=== PATIENT | male | born 1965 | race Caucasian/White ===

== ENCOUNTER → 2016-06-08 | Outpatient (CLI) | payer MEDICARE, OTHER | LOC: M RAD 09:56 | PROVIDERS: ATTEND Physician Assistant | DX: M75.41 Impingement syndrome of right shoulder (principal) ==

== ENCOUNTER → 2016-09-07 | Outpatient (REF) | payer MEDICARE, OTHER ==
[2016-09-07 16:21] LABS: BASO % 0.7 % (0.0-1.0); EOS # 0.1 K/mm3 (0.0-0.50); EOS % 1.4 % (0.0-3.0); LARGE UNSTAINED CELL # 0.1 K/mm3 (0.0-0.4); LARGE UNSTAINED CELL % 1.5 % (0.0-4.0); LYMPH # 1.6 K/mm3 (1.5-4.5); LYMPH % 33.1 % (24.0-44.0); MEAN CORPUSCULAR HGB CONC 34.5 g/dl (32.0-36.5); MEAN CORPUSCULAR VOLUME 86.8 fl (80.0-96.0); MONO # 0.3 K/mm3 (0.0-0.8); MONO % 6.1 % (0.0-5.0); NEUTROPHILS # 2.6 K/mm3 (1.8-7.7); NEUTROPHILS % 57.1 % (36.0-66.0); PLATELET COUNT, AUTOMATED 174 k/mm3 (150-450); RED CELL DISTRIBUTION WIDTH 12.7 % (11.5-14.5); WHITE BLOOD COUNT 4.6 K/mm3 (4.0-10.0)
[2016-09-07 16:28] LABS: ALBUMIN 4.3 GM/DL (3.2-5.2); ALBUMIN/GLOBULIN RATIO 1.13 (1.00-1.93); ALKALINE PHOSPHATASE 108 U/L (45-117); ALT/SGPT 51 U/L (12-78); ANION GAP 9 MEQ/L (8-16); AST/SGOT 31 U/L (15-37); BILIRUBIN,TOTAL 0.9 MG/DL (0.2-1.0); BLOOD UREA NITROGEN 14 MG/DL (7-18); CALCIUM LEVEL 8.7 MG/DL (8.5-10.1); CARBON DIOXIDE LEVEL 27 MEQ/L (21-32); CHLORIDE LEVEL 104 MEQ/L (98-107); CHOLESTEROL LEVEL 125 MG/DL (<200); CREATININE FOR GFR 1.07 MG/DL (0.70-1.30); GLOMERULAR FILTRATION RATE > 60.0 (>56); GLUCOSE, FASTING 89 MG/DL (70-105); POTASSIUM SERUM 4.1 MEQ/L (3.5-5.1); SODIUM LEVEL 140 MEQ/L (136-145); TOTAL PROTEIN 8.1 GM/DL (6.4-8.2); TRIGLYCERIDES LEVEL 91 MG/DL (<150)
== END ==
LOC: M LABDRAW1 13:31
PROVIDERS: ATTEND Emergency Medicine
DX: E29.1 Testicular hypofunction (principal)
CPT/HCPCS: 36415; 80053; 80061; 84402; 84403; 85025; G0103

== ENCOUNTER 2017-04-16 07:52 | Day surgery (SDC) | payer MEDICARE, OTHER ==
[~2017-04-16] VITALS: Ht 188 cm; Wt 101.6 kg
[~2017-04-16 07:52] MED LIST: ASPI81TA85 PO; PROBCAP4 PO; [UNRECOGNIZED DRUG - OTHER] PO
[2017-04-16] MEDS ORDERED: NS 1,000 ML IV ONE (08:00)
[2017-04-16] MEDS ORDERED: PROPOFOL 200 MG/20 ML VIAL As Ordered ONE ×3 (09:14→09:41)
[2017-04-16] MEDS ORDERED: LIDOCAINE 2% INJ 100 MG/5 ML SDV (FOR ANES.) As Ordered ONE (09:14)
--- NOTE | 2017-04-16 09:54 | ROOR ---
Patient Name: Jerrod Mai Procedure Date: 04/16/2017 9:16 AM Date of : 1965 Age: 51 Room: [facility] Gender: Male Note Status: Finalized Procedure: Colonoscopy Indications: Screening for colorectal malignant neoplasm, This is the patient's first colonoscopy Providers: Christopher Jenkins MD Referring MD: ANA STAPLETON MD Requesting Provider: Medicines: Monitored Anesthesia Care Complications: No immediate complications. Procedure: Pre-Anesthesia Assessment: - Prior to the procedure, a History and Physical was performed, and patient medications and allergies were reviewed. The patient is competent. The risks and benefits of the procedure and the sedation options and risks were discussed with the patient. All questions were answered and informed consent was obtained. Patient identification and proposed procedure were verified by the physician, the nurse and the anesthesiologist in the procedure room. Mental Status Examination: alert and oriented. Airway Examination: normal oropharyngeal airway and neck mobility. CV Examination: regular rate and rhythm. Prophylactic Antibiotics: The patient does not require prophylactic antibiotics. Prior Anticoagulants: The patient has taken no previous anticoagulant or antiplatelet agents. ASA Grade Assessment: I - A normal, healthy patient. After reviewing the risks and benefits, the patient was deemed in satisfactory condition to undergo the procedure. The anesthesia plan was to use monitored anesthesia care (MAC). Immediately prior to administration of medications, the patient was re-assessed for adequacy to receive sedatives. The heart rate, respiratory rate, oxygen saturations, blood pressure, adequacy of pulmonary ventilation, and response to care were monitored throughout the procedure. The physical status of the patient was re-assessed after the procedure. The was introduced through the anus and advanced to the cecum, identified by appendiceal orifice and ileocecal valve. The colonoscopy was performed without difficulty. The patient tolerated the procedure well. The quality of the bowel preparation was good. Findings: The perianal and digital rectal examinations were normal. The colon (entire examined portion) appeared normal. Impression: - The entire examined colon is normal. - No specimens collected. Recommendation: - Discharge patient to home. - Resume previous diet. - Continue present medications. - Repeat colonoscopy in 10 years for screening purposes. Christopher Jenkins MD 04/16/2017 9:54:18 AM Number of Addenda: 0 Note Initiated On: 04/16/2017 9:16 AM Estimated Blood Loss: Estimated blood loss: none.
[2017-04-16 10:20] VITALS: BP 142/89
== END 2017-04-16 10:18 | disposition home or self-care (01) ==
LOC: M OPP 07:52
PROVIDERS: ATTEND Surgery
DX: Z12.11 Encounter for screening for malignant neoplasm of colon (principal); M54.9 Dorsalgia, unspecified; Z79.82 Long term (current) use of aspirin; M96.1 Postlaminectomy syndrome, not elsewhere classified

== ENCOUNTER → 2018-01-30 | Outpatient (REF) | payer MEDICARE, OTHER ==
[2018-01-30 12:42] LABS: BASO % 0.5 % (0.0-1.0); EOS % 0.7 % (0.0-3.0); HEMATOCRIT 42.2 % (42.0-52.0); IMMATURE GRANULOCYTE % 0.9 % (0-3.0); LYMPH # 1.3 10^3/uL (1.5-4.5); LYMPH % 23.3 % (24.0-44.0); MEAN CORPUSCULAR HEMOGLOBIN 29.5 pg (27.0-33.0); MEAN CORPUSCULAR HGB CONC 33.2 g/dl (32.0-36.5); MEAN CORPUSCULAR VOLUME 88.8 fl (80.0-96.0); MONO # 0.4 10^3/uL (0.0-0.8); MONO % 6.7 % (0.0-5.0); NEUTROPHILS # 3.9 10^3/uL (1.8-7.7); NEUTROPHILS % 67.9 % (36.0-66.0); PLATELET COUNT, AUTOMATED 238 10^3/uL (150-450); RED BLOOD COUNT 4.75 10^6/uL (4.30-6.10); RED CELL DISTRIBUTION WIDTH 12.6 % (11.5-14.5); WHITE BLOOD COUNT 5.7 10^3/uL (4.0-10.0)
[2018-01-30 14:16] LABS: ALBUMIN 4.3 GM/DL (3.2-5.2); ALBUMIN/GLOBULIN RATIO 1.19 (1.00-1.93); ALKALINE PHOSPHATASE 124 U/L (45-117); ALT/SGPT 35 U/L (12-78); ANION GAP 9 MEQ/L (8-16); AST/SGOT 25 U/L (7-37); BILIRUBIN,TOTAL 0.8 MG/DL (0.2-1.0); BLOOD UREA NITROGEN 16 MG/DL (7-18); CALCIUM LEVEL 9.2 MG/DL (8.5-10.1); CARBON DIOXIDE LEVEL 28 MEQ/L (21-32); CHLORIDE LEVEL 103 MEQ/L (98-107); CHOLESTEROL LEVEL 165 MG/DL (<200); CHOLESTEROL RISK RATIO 2.704 (<5); GLOMERULAR FILTRATION RATE > 60.0 (>56); GLUCOSE, FASTING 83 MG/DL (70-100); HDL CHOLESTEROL 61 MG/DL (>40); LDL CHOLESTEROL 86 MG/DL (<100); NON-HDL-C 104 MG/DL; POTASSIUM SERUM 4.3 MEQ/L (3.5-5.1); PSA SCREENING 0.45 NG/ML (< 4.0); SODIUM LEVEL 140 MEQ/L (136-145); TOTAL PROTEIN 7.9 GM/DL (6.4-8.2); TRIGLYCERIDES LEVEL 91 MG/DL (<150)
[2018-01-31 14:15] LABS: TESTOSTERONE FREE (DIRECT) 4.2 pg/mL (7.2-24.0)
== END ==
LOC: M LABDRAW1 11:46
DX: E29.1 Testicular hypofunction (principal); Z12.5 Encounter for screening for malignant neoplasm of prostate
CPT/HCPCS: 84403

== ENCOUNTER → 2019-02-24 | Outpatient (REF) | payer MEDICARE, OTHER ==
[2019-02-24 13:28] LABS: ALBUMIN 4.1 GM/DL (3.2-5.2); ALT/SGPT 24 U/L (12-78); BILIRUBIN,TOTAL 0.5 MG/DL (0.2-1.0); BLOOD UREA NITROGEN 9 MG/DL (7-18); CALCIUM LEVEL 8.8 MG/DL (8.5-10.1); CARBON DIOXIDE LEVEL 27 MEQ/L (21-32); CHLORIDE LEVEL 104 MEQ/L (98-107); CHOLESTEROL LEVEL 151 MG/DL (<200); CHOLESTEROL RISK RATIO 3.145 (<5); CREATININE FOR GFR 1.04 MG/DL (0.70-1.30); FREE T4 0.93 NG/DL (0.76-1.46); GLOMERULAR FILTRATION RATE > 60.0 (>56); GLUCOSE, FASTING 86 MG/DL (70-100); HDL CHOLESTEROL 48 MG/DL (>40); LDL CHOLESTEROL 58 MG/DL (<100); NON-HDL-C 103 MG/DL; POTASSIUM SERUM 4.2 MEQ/L (3.5-5.1); SODIUM LEVEL 138 MEQ/L (136-145); TRIGLYCERIDES LEVEL 224 MG/DL (<150)
[2019-02-26 00:08] LABS: TESTOSTERONE FREE (DIRECT) 6.5 pg/mL (7.2-24.0)
== END ==
LOC: M LABDRAW1 10:47
PROVIDERS: ATTEND Physician Assistant
DX: E29.1 Testicular hypofunction (principal); R03.0 Elevated blood-pressure reading, without diagnosis of hypertension; Z80.42 Family history of malignant neoplasm of prostate; R53.83 Other fatigue; Z79.82 Long term (current) use of aspirin; Z79.899 Other long term (current) drug therapy
CPT/HCPCS: 36415; 80053; 80061; 84402; 84403; 84439; 84443; G0103

== ENCOUNTER → 2019-09-15 | Outpatient (REF) | payer MEDICARE, BC, OTHER ==
[~2019-09-15] MED LIST changes: -ASPI81TA85 PO; +ASPI81TA86 PO
== END ==
LOC: M LAB REF 10:17
PROVIDERS: ATTEND Dermatology
DX: D23.39 Other benign neoplasm of skin of other parts of face (principal)

== ENCOUNTER → 2019-09-22 | Outpatient (CLI) | payer MEDICARE, OTHER ==
--- NOTE | 2019-09-22 15:57 | REP ---
CHEST, TWO VIEWS: COMPARISON: 01/24/2011 Two views of the chest are performed. There is no acute infiltrate or pulmonary edema. The heart is normal in size and the mediastinal silhouette is unchanged. There are degenerative changes of the spine. IMPRESSION: No evidence of acute pulmonary disease. Electronically Signed by Willy Mai MD 09/22/2019 04:05 P
== END ==
LOC: M WUC 15:27
PROVIDERS: ATTEND Physician Assistant
DX: R07.81 Pleurodynia (principal)

== ENCOUNTER 2019-09-28 09:09 | Emergency (ER) | payer MEDICARE, OTHER ==
[~2019-09-28] VITALS: Ht 190.5 cm; Wt 106.2 kg
[~2019-09-28 09:09] MED LIST changes: +ASPI81TA85 PO; -ASPI81TA86 PO
--- NOTE | 2019-09-28 10:01 | REP ---
Portable chest x-ray: Single view. History: Chest pain. Comparison study: September 22, 2019. Findings: Monitoring electrodes are seen. Lungs are well inflated and clear. The pleural angles are sharp. Heart size is normal. Pulmonary vasculature is not increased. There are degenerative changes in the thoracic spine. Impression: No active disease. Electronically Signed by aNbil Hurtado MD 09/28/2019 09:53 A
[2019-09-28 10:44] LABS: BASO # 0.1 10^3/uL (0.0-0.2); BASO % 1.2 % (0.0-1.0); EOS # 0.1 10^3/uL (0.0-0.5); HEMATOCRIT 41.7 % (42.0-52.0); HEMOGLOBIN 14.3 g/dl (13.5-17.5); LYMPH # 1.6 10^3/uL (1.5-5.0); LYMPH % 26.5 % (24.0-44.0); MEAN CORPUSCULAR HEMOGLOBIN 30.2 pg (27.0-33.0); MEAN CORPUSCULAR HGB CONC 34.3 g/dl (32.0-36.5); MONO # 0.5 10^3/uL (0.0-0.8); MONO % 8.1 % (0.0-5.0); NEUTROPHILS # 3.7 10^3/uL (1.5-8.5); NEUTROPHILS % 61.7 % (36.0-66.0); PLATELET COUNT, AUTOMATED 207 10^3/uL (150-450); RED BLOOD COUNT 4.74 10^6/uL (4.30-6.10)
[2019-09-28 11:07] LABS: ALBUMIN 3.8 GM/DL (3.2-5.2); ALT/SGPT 76 U/L (12-78); BILIRUBIN,DIRECT 0.2 MG/DL (0.0-0.2); BILIRUBIN,TOTAL 0.7 MG/DL (0.2-1.0); BLOOD UREA NITROGEN 14 MG/DL (7-18); CALCIUM LEVEL 8.8 MG/DL (8.5-10.1); CARBON DIOXIDE LEVEL 28 MEQ/L (21-32); CHLORIDE LEVEL 106 MEQ/L (98-107); CK-MB VALUE MASS 4.3 NG/ML (<3.6); CPK CREATINE PHOSPHOKINASE 703 U/L (39-308); CREATININE FOR GFR 1.06 MG/DL (0.70-1.30); FREE T4 1.15 NG/DL (0.76-1.46); GLOMERULAR FILTRATION RATE > 60.0 (>56); GLUCOSE, FASTING 148 MG/DL (70-100); LIPASE 229 U/L (73-393); MB/CK RELATIVE INDEX 0.61 (< OR =4); NT-PRO BNP 34 PG/ML (<125); POTASSIUM SERUM 3.9 MEQ/L (3.5-5.1); SODIUM LEVEL 141 MEQ/L (136-145); TOTAL PROTEIN 7.1 GM/DL (6.4-8.2); TROPONIN I < 0.02 NG/ML (< 0.10)
[2019-09-28 12:26] VITALS: BP 135/72
--- NOTE | 2019-09-29 07:10 | ECGEPIP ---
[facility] - ED Test Date: 2019-09-28 Pat Name: KELSEY ONEILL Department: Room: - Gender: Male Installation Service Representative: pavel : 1965 Requested By: Gregory Mercado Order Number: [id number] Reading MD: Veena Sargent Measurements Intervals [place] Rate: 69 P: 11 CO: 159 QRS: 3 QRSD: 97 T: 21 QT: 421 QTc: 451 Interpretive Statements SINUS RHYTHM MINIMAL VOLTAGE CRITERIA FOR LVH, CONSIDER NORMAL VARIANT No prior Electronically Signed on 09-29-2019 7:09:59 EDT by Veena Sargent
== END 2019-09-28 12:31 | disposition home or self-care (01) ==
LOC: M ED 09:09
DX: R07.89 Other chest pain (principal); R05 Cough; R06.02 Shortness of breath; Z79.82 Long term (current) use of aspirin; Z87.891 Personal history of nicotine dependence; Z77.098 Contact with and (suspected) exposure to other hazardous, chiefly nonmedicinal, chemicals

== ENCOUNTER → 2020-01-05 | Outpatient (REF) | payer MEDICARE, OTHER ==
[~2020-01-05] MED LIST changes: -ASPI81TA85 PO; +ASPI81TA86 PO
[2020-01-05 23:01] LABS: BLOOD UREA NITROGEN 11 MG/DL (7-18); CREATININE FOR GFR 0.86 MG/DL (0.70-1.30); GLOMERULAR FILTRATION RATE > 60.0 (>56)
== END ==
LOC: M LAB REF 13:15
PROVIDERS: ATTEND Internal Medicine Pulmonary Disease
DX: R06.00 Dyspnea, unspecified (principal)

== ENCOUNTER → 2020-01-14 | Outpatient (CLI) | payer MEDICARE, BC, OTHER ==
[~2020-01-14] MED LIST changes: +ISOVUE-370 76% 100ML VIAL As Ordered ONE
--- NOTE | 2020-02-10 12:49 | REP ---
CONTRAST ENHANCED CHEST CT CLINICAL: Dyspnea. TECHNIQUE: Axial contrast enhanced images from the thoracic inlet to the upper abdomen with multiplanar reformations using pulmonary embolus technique. 75 mL of Isovue-370 intravenous contrast material administered without complication. FINDINGS: Enhancement of the pulmonary vasculature is somewhat suboptimal due to timing. No obvious pulmonary embolus appreciated. The thoracic aorta is normal and without aneurysm or dissection. No cardiomegaly or pericardial effusion. Right apical mass is appreciated and requires further evaluation. Bilateral lung garcía are otherwise clear and without further consolidation, effusion, or pneumothorax. Tracheobronchial tree is patent. No adenopathy. Surrounding musculoskeletal structures are intact. IMPRESSION: No evidence for pulmonary embolus. Normal thoracic aorta. Right apical mass requires further evaluation. . MTDD
== END ==
LOC: M RAD 13:04
PROVIDERS: ATTEND Internal Medicine Pulmonary Disease
DX: R06.00 Dyspnea, unspecified (principal)
CPT/HCPCS: 71275; Q9967

== ENCOUNTER → 2020-01-15 | Outpatient (CLI) | payer MEDICARE, BC, OTHER ==
[~2020-01-15] MED LIST changes: -ISOVUE-370 76% 100ML VIAL As Ordered ONE
--- NOTE | 2020-02-10 12:50 | REP ---
LEFT LOWER EXTREMITY DOPPLER ULTRASOUND: CLINICAL: Edema, pain. TECHNIQUE: Real time, rodriguez scale and color evaluation using linear high frequency transducer. FINDINGS: Ultrasound examination of the left lower extremity deep venous structures from the common femoral vein to the popliteal vein demonstrates normal compressibility, flow and wave patterns in response to respiration and augmentation. There is no evidence for deep venous thrombosis. IMPRESSION: Negative examination. No DVT. MTDD
== END ==
LOC: M RAD 06:05
PROVIDERS: ATTEND Internal Medicine Pulmonary Disease
DX: R60.0 Localized edema (principal)

== ENCOUNTER → 2020-02-04 | Outpatient (CLI) | payer MEDICARE, OTHER ==
[~2020-02-04] MED LIST changes: +ISOVUE-370 76% 100ML VIAL As Ordered ONE
--- NOTE | 2020-02-10 07:10 | REP ---
CT SOFT TISSUE NECK WITH INTRAVENOUS (IV) CONTRAST HISTORY: Neoplasm of the mediastinum. COMPARISON: Chest CT study 01/14/2020 shows a mediastinal mass in the right side of the thoracic inlet at the level of the lung apex. CT CONTRAST DOSE: 75 mL of intravenous Isovue-[address] FINDINGS: Digital preliminary supervisor counseling and guidance radiographs are unremarkable. Visualized intracranial structures are intact. No intraorbital lesion is seen. The paranasal sinuses are clear except for some mild mucosal changes in the inferior aspect of each maxillary sinus. No bony destructive lesion is seen. Parotid and submandibular glands are normal and symmetric. Thyroid lobes are homogeneous in texture and normal in size and position. No vascular abnormality is seen. There is no evidence of suprahyoid or infrahyoid lymphadenopathy. The small mass at the thoracic inlet seen on the 01/14/2020 CT study of the chest is again noted. This is isodense to skeletal muscle. On axial images, its dimensions are 3.5 cm in medial to lateral x 2.5 cm anterior to posterior. Its craniocaudal extent is a little bit difficult to define, but appears to be 4.6 cm. It is bordered laterally by the anterior and middle scalene muscle, posterior and medially by the longus coli muscle on the right. Anteriorly the lesion is bordered by the right subclavian artery. The right vertebral artery courses along or possibly through the anterior margin of the lesion. There is a flat plane between the lesion and the mediastinal fat at the thoracic inlet. The lesion does not appear to be of pulmonary origin. The lung apices are clear. No rib erosion or remodeling is appreciated. No vertebral changes. No other mass lesion is seen. IMPRESSION: Small soft tissue mass the right side of the thoracic inlet 3.5 x 2.5 x 4.6 cm in diameter. Possibilities include neurogenic tumor, variant skeletal muscle related to anterior scalene or adjacent longus coli muscle, or other neoplasm. MRI scanning without and with intravenous (IV) contrast may provide additional characterization. There is no evidence of bony destructive or remodeling change. MTDD
== END ==
LOC: M RAD 09:03
PROVIDERS: ATTEND Thoracic Surgery (Cardiothoracic Vascular Surgery)
DX: D38.3 Neoplasm of uncertain behavior of mediastinum (principal)
CPT/HCPCS: 70491; Q9967

== ENCOUNTER → 2020-06-17 | Outpatient (CLI) | payer MEDICARE, OTHER ==
[~2020-06-17] MED LIST changes: -ISOVUE-370 76% 100ML VIAL As Ordered ONE
--- NOTE | 2020-06-17 11:59 | REP ---
INDICATION: MASS ON MRI, PAIN. Evaluate for tear or avascular necrosis or other etiology of pain. COMPARISON: Comparison soft tissue neck CT study 02/04/2020 showed a soft tissue mass at the thoracic inlet on the right side.. TECHNIQUE: Axial, oblique coronal, and oblique sagittal imaging planes are utilized for T1 and T2 weighted scans obtained with and without fat saturation in the usual fashion. Postcontrast imaging is included. The gadolinium enhancement dose is 20 mL of intravenous ProHance. FINDINGS: This shoulder protocol MRI study does not include the more medial aspect of the thoracic inlet where previous soft tissue neck CT study showed a mass. There is no evidence of avascular and a clip necrosis of the humeral head. There is however a intramedullary lesion in the proximal diaphysis of the right humerus characterized by heterogeneous low and high T2 signal and low T1 signal. It has a narrow zone of transition and no adjacent edema or periosteal reaction and a nonaggressive appearance. It is most consistent with enchondroma, less likely bone infarct. Cortical and medullary bone signal intensity are otherwise normal. There is some subcortical cyst formation in the superolateral humeral head which is a finding correlated with impingement. There is mild osteoarthritic hypertrophy of the acromioclavicular joint and some inferolateral spurring of the acromion process is seen. T2 weighted scans demonstrate a tiny sliver of subacromial subdeltoid bursal fluid. There is a small quantity of joint fluid in the biceps tendon. There is a 2 0.3 mm low signal loose sheath seen to best advantage body in the biceps tendon on T2 weighted scans. No other evidence of loose body is seen. There is advanced tendinitis tendinosis change in the distal supraspinatus tendon. No focal or full-thickness supraspinatus cuff tear is seen. The infraspinatus and subscapularis tendons appear intact. There is chondromalacia in the glenoid articular cartilage. No labral tear is seen. On postcontrast imaging, there is extensive T1 hyperintensity on precontrast study and there is no definite evidence of contrast enhancement within the lesion in the proximal humerus. No other significant contrast enhancement is appreciated. IMPRESSION: 1. There is a 5.6 cm long intramedullary lesion in the proximal humeral diaphysis most consistent with a benign enchondroma. 2. Advanced tendinitis tendinosis changes in the supraspinatus tendon without for focal or full-thickness cuff tear. 3. 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 4. Small osteocartilaginous loose body seen in the biceps tendon sheath. 5. Glenoid chondromalacia. <Electronically signed by Jonathan Hurtado > 06/17/20 [id number]
== END ==
LOC: M RAD 08:51
DX: M94.211 Chondromalacia, right shoulder (principal); M19.011 Primary osteoarthritis, right shoulder; M25.511 Pain in right shoulder

== ENCOUNTER 2020-08-06 12:08 | Observation (INO) | payer MEDICARE, OTHER ==
[~2020-08-06] VITALS: Ht 190.5 cm; Wt 99.5 kg
[2020-08-06] MEDS ORDERED: ASPI-1 PO (12:16)
[2020-08-06] MEDS ORDERED: MORPHINE 10 MG/ML 1ML VIAL (J2270) IM ONE (12:40)
[2020-08-06] MEDS ORDERED: ONDANSETRON 4MG/2ML VIAL IV ONE (12:40)
[2020-08-06] MEDS ORDERED: MORPHINE 4 MG/ML 1ML VIAL/SYRINGE (J2270) IV ONE (12:40)
[2020-08-06 12:58] LABS: BASO % 0.5 % (0.0-1.0); EOS # 0.1 10^3/uL (0.0-0.5); HEMATOCRIT 40.6 % (42.0-52.0); HEMOGLOBIN 14.2 g/dl (13.5-17.5); LYMPH # 1.3 10^3/uL (1.5-5.0); LYMPH % 22.5 % (24.0-44.0); MEAN CORPUSCULAR HEMOGLOBIN 30.6 pg (27.0-33.0); MEAN CORPUSCULAR VOLUME 87.5 fl (80.0-96.0); MONO # 0.4 10^3/uL (0.0-0.8); MONO % 7.6 % (2.0-8.0); NEUTROPHILS # 3.9 10^3/uL (1.5-8.5); NEUTROPHILS % 67.9 % (36.0-66.0); PLATELET COUNT, AUTOMATED 231 10^3/uL (150-450); RED BLOOD COUNT 4.64 10^6/uL (4.30-6.10); WHITE BLOOD COUNT 5.8 10^3/uL (4.0-10.0)
[2020-08-06 13:21] LABS: ALBUMIN 4.3 GM/DL (3.2-5.2); ALT/SGPT 44 U/L (12-78); BILIRUBIN,DIRECT 0.2 MG/DL (0.0-0.2); BILIRUBIN,TOTAL 0.8 MG/DL (0.2-1.0); BLOOD UREA NITROGEN 11 MG/DL (7-18); CALCIUM LEVEL 8.8 MG/DL (8.5-10.1); CARBON DIOXIDE LEVEL 28 MEQ/L (21-32); CHLORIDE LEVEL 106 MEQ/L (98-107); CREATININE FOR GFR 0.97 MG/DL (0.70-1.30); GLOMERULAR FILTRATION RATE > 60.0 (>56); GLUCOSE, FASTING 142 MG/DL (70-100); POTASSIUM SERUM 3.9 MEQ/L (3.5-5.1); SODIUM LEVEL 137 MEQ/L (136-145); TOTAL PROTEIN 7.7 GM/DL (6.4-8.2)
--- NOTE | 2020-08-06 13:38 | REP ---
INDICATION: fall, bony tenderness. COMPARISON: None. TECHNIQUE: Four views of the right femur are presented. FINDINGS: Four views of the right femur demonstrate displaced transverse fracture through the patella. There is 3 cm of diastasis in the patellar fracture. Anterior soft tissue swelling is seen. There is a normal fabella. No femur fracture is seen. No proximal tibial fracture is seen.. No fracture or subluxation is seen. No opaque foreign body noted. IMPRESSION: Displaced transverse fracture of the patella. No femur fracture seen.. <Electronically signed by Jonathan Hurtado > 08/06/20 [id number]
--- NOTE | 2020-08-06 13:38 | REP ---
INDICATION: fall, bony tenderness. COMPARISON: None. TECHNIQUE: Four views. FINDINGS: Four views of the right tib fib demonstrate a transversely oriented diastatic and comminuted fracture of the patella. No tibial or fibular fracture is seen. There is plantar calcaneal spurring and dystrophic soft tissue calcification deposits are seen along the plantar fascia at the edge of the field of view. No ankle fracture is seen.. . No opaque foreign body noted. IMPRESSION: Displaced comminuted fracture of the patella. Calcifications along the course of the plantar fascia and heel spurring. No other bony abnormality.. <Electronically signed by Jonathan Hurtado > 08/06/20 [id number]
--- NOTE | 2020-08-06 13:40 | REP ---
INDICATION: trauma. COMPARISON: None. TECHNIQUE: Five views of the right knee are provided. FINDINGS: Five views of the right knee demonstrate transversely oriented comminuted fracture of the patella. Patellar fracture is diastatic approximately 3 cm due to retraction of the quadriceps mechanism. The inferior pole of the patella is comminuted. No femoral or tibial fracture is seen. No fibular fracture is observed. A normal fabella is noted. Joint spaces are preserved.. . . IMPRESSION: Diastatic comminuted transversely oriented fracture of the patella.. <Electronically signed by Jonathan Hurtado > 08/06/20 [id number]
--- NOTE | 2020-08-06 13:41 | REP ---
INDICATION: pre op. COMPARISON: Comparison chest x-ray September 28, 2019.. TECHNIQUE: Single AP radiograph of the chest. FINDINGS: Heart is not enlarged. Lungs are symmetrically aerated and clear. Pleural angles are sharp. No significant bony abnormality is seen. Pulmonary vasculature is not increased. IMPRESSION: No active disease. <Electronically signed by Jonathan Hurtado > 08/06/20 [id number]
[2020-08-06] MEDS ORDERED: HYDROMORPHONE HCL 0.5 MG/ 0.5 ML SYRINGE (J1170 PER 1) IV ONE (14:15)
--- NOTE | 2020-08-06 15:59 | REP ---
INDICATION: comparison to R, per ortho. COMPARISON: Comparison is made with today's right knee radiographs and a prior left knee radiograph from December 11, 2006.. TECHNIQUE: Five views. FINDINGS: Five views of the left knee demonstrate a normal fabella. There is minimal patellofemoral and lateral compartment spurring. There is also spurring at the non articular margin of the patella superiorly at the quadriceps tendon insertion.. No fracture or subluxation is seen. No opaque foreign body noted. IMPRESSION: Minimal patellar spurring. No acute bony abnormality.. <Electronically signed by Jonathan Hurtado > 08/06/20 [id number]
--- NOTE | 2020-08-06 16:20 | REP ---
INDICATION: pre-op, patellar fracture, 2 mm fine cuts. COMPARISON: Comparison is made with today's radiographs showing patellar fracture.. TECHNIQUE: Helical scanning is acquired and 2 mm axial images are generated. Coronal and sagittal MPR images are provided FINDINGS: . there is a transversely oriented distracted fracture of the patella. The distal fragment is retracted downward and the proximal fragment upward. There is approximately 60 degrees of rotation of the distal fragment. There is approximately 3 cm of diastasis at the patellar fracture site. The superior pole fragment is largely intact. There is some non articular spurring at the upper pole of the patella at the quadriceps tendon insertion. Mild articular spurring is seen at the superior pole the patella. The inferior patellar fragment is somewhat comminuted. There is a sagittal plane fracture coursing through it and some fragments are seen along its lateral extent. There is overlying soft tissue swelling and some adjacent soft tissue air is seen in the prepatellar soft tissues. No femoral or tibial fracture is appreciated. There is a normal fabella. IMPRESSION: Transversely oriented diastatic patellar fracture as above. There are a few droplets of adjacent prepatellar soft tissue emphysema true which would appear to imply the possibility of an open injury. <Electronically signed by Jonathan Hurtado > 08/06/20 [id number]
[2020-08-06] MEDS ORDERED: ONDANSETRON 4MG/2ML VIAL IV PRN (17:10)
[2020-08-06] MEDS ORDERED: KETOROLAC 30 MG/ML 1ML VIAL IV ONE (17:30)
--- NOTE | 2020-08-06 17:41 | HPEPDOC ---
General Date of Admission 08/06/20 Date of Service: Aug 06, 2020 Chief Complaint The patient is a 55-year-old male admitted with a reason for visit of Right Knee Pain / Fall. Source: Patient, RN/MD History of Present Illness 55 year old healthy male was running with his dog this morning when he lost control of the least and the leash wrapped around his leg and he fell and i njured his right knee. CT scan of the right knee shows transversely oriented diastatic patellar fracture as above. There are a few droplets of adjacent prepatellar soft tissue emphysema true which would appear to imply the possibility of an open injury. He was seen by ortho in the ED. Has a knee i mmobilizer on. Plan is to take him to OR on 08/07/20. 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 Chronic low back pain. Surgical History T12 laminectomy many years ago Surgery for neurofibromatosis of the right lung in apr 2020 Family History Significant Family History: Cancer (Father from lukaemia, Mother form brain cancer) Social History * Smoker: Denies Alcohol: Denies Drugs: denies A-FIB/CHADSVASC A-FIB History Current/History of A-Fib/PAF?: No Review of Systems Constitutional: Denies: Chills, Fever, Night Sweats Eyes: Denies: Pain, Vision change ENT: Denies: Head Aches, Ear Pain, Dysphagia Skin: Denies: Rash, Lesions, Breakdown Pulmonary: Denies: Dyspnea, Cough Cardiovascular: Denies: Chest Pain, Palpitations, Orthopnea, Paroxysmal Noc. Dyspnea, Lt Headedness Gastrointestinal: Denies: Nausea, Vomiting, Abdominal Pain, Diarrhea Genitourinary: Denies: Dysuria, Frequency, Incontinence, Retention Hematologic: Denies: Bruising, Bleeding Excessively Musculoskeletal: Reports: Neck Pain, Back Pain, Joint Pain (right knee), Spasms; Denies: Muscle Pain Neurological: Denies: Weakness, Numbness, Change in speech, Confusion Psych: Reports: Mood Normal; Denies: Depression, Memory Issues Physical Examination General Exam: Positive: Alert, Cooperative, No Acute Distress Eye Exam: Positive: PERRLA, Conjunctiva & lids normal, EOMI; Negative: Sclera icteric ENT Exam: Positive: Atraumatic, Mucous membr. moist/pink, Pharynx Normal Neck Exam: Positive: Supple; Negative: JVD, thyromegaly Chest Exam: Positive: Clear to auscultation, Normal air movement Heart Exam: Positive: Rate Normal, Regular Rhythm, Normal S1, Normal S2; Negative: Murmurs, Rubs Abdomen Exam: Positive: Normal bowel sounds, Soft; Negative: Tenderness, Hepatospenomegaly Extremity Exam: Positive: Tenderness (right knee), Swelling (right kne); Negative: Clubbing, Cyanosis, Edema Skin Exam: Positive: Nl turgor and temperature; Negative: Breakdown, Lesion Vital Signs Vital Signs Date Time Temp Pulse Resp B/P (MAP) Pulse Ox O2 Delivery O2 Flow Rate FiO2 08/06/20 14:36 16 08/06/20 12:30 08/06/20 12:09 98.5 89 100 Room Air Laboratory Data Labs 24H Laboratory Tests 2 08/06/20 12:46: Immature Granulocyte % (Auto) 0.5, Neutrophils (%) (Auto) 67.9H, Lymphocytes (%) (Auto) 22.5L, Monocytes (%) (Auto) 7.6, Eosinophils (%) (Auto) 1.0, Basophils (%) (Auto) 0.5, Neutrophils # (Auto) 3.9, Lymphocytes # (Auto) 1.3L, Monocytes # (Auto) 0.4, Eosinophils # (Auto) 0.1, Basophils # (Auto) 0.0, Nucleated Red Blood Cells % (auto) 0.0, Anion Gap 3L, Glomerular Filtration Rate > 60.0, Calcium Level 8.8, Total Bilirubin 0.8, Direct Bilirubin 0.2, Aspartate Amino Transf (AST/SGOT) 41H, Alanine Aminotransferase (ALT/SGPT) 44, Alkaline Phosphatase 128H, Total Protein 7.7, Albumin 4.3, Albumin/Globulin Ratio 1.3 08/06/20 13:33: Coronavirus (COVID-19)(PCR) NEGATIVE CBC/BMP Laboratory Tests 08/06/20 12:46 Assessment/Plan 55 year old healthy male was running with his dog this morning when he lost control of the least and the leash wrapped around his leg and he fell and injured his right knee. CT scan of the right knee shows transversely oriented diastatic patellar fracture as above. There are a few droplets of adjacent prepatellar soft tissue emphysema true which would appear to imply the possibility of an open injury. He was seen by ortho in the ED. Has a knee immobilizer on. Plan is to take him to OR on 08/07/20. Right patellar fracture as per orthopedics pain control with morphine and toradol activity as per ortho has knee mobilizer in place GERD continue omeprazole Plan / VTE VTE Prophylaxis Ordered?: Yes RAUL MOYER MD Aug 06, 2020 16:17
[2020-08-06] MEDS: NS 1,000 ML IV SCH (17:50)
[2020-08-06] MEDS: OMEPRAZOLE 20 MG CAP PO SCH (18:52)
[2020-08-06] MEDS: MORPHINE 4 MG/ML 1ML VIAL/SYRINGE (J2270) IV PRN (19:56)
[2020-08-06 20:52] VITALS: BP 158/90
[2020-08-07] MEDS: NS 1,000 ML IV SCH (03:30)
[2020-08-07 05:28] VITALS: BP 140/64
[2020-08-07] MEDS: MORPHINE 4 MG/ML 1ML VIAL/SYRINGE (J2270) IV PRN (05:36)
[2020-08-07] MEDS: OMEPRAZOLE 20 MG CAP PO SCH (08:24)
[2020-08-07] MEDS ORDERED: LIDOCAINE 2% 100MG/5ML SDV (FOR ANES.) As Ordered ONE ×2 (08:29→10:47)
[2020-08-07] MEDS ORDERED: propofoL 200 MG/20 ML VIAL As Ordered ONE ×4 (08:29→13:01)
[2020-08-07] MEDS ORDERED: fentaNYL 100 MCG/2 ML INJECTION (J3010) As Ordered ONE ×2 (08:30→11:54)
[2020-08-07] MEDS ORDERED: MIDAZOLAM INJ 2MG/2ML VIAL (J2250 PER 1MG) As Ordered ONE (08:30)
[2020-08-07] MEDS ORDERED: ONDANSETRON 4MG/2ML VIAL As Ordered ONE (08:30)
[2020-08-07] MEDS ORDERED: dexameTHASONE 4 MG/ML 1ML VIAL (J1100 PER 1MG) As Ordered ONE (08:30)
[2020-08-07 09:00] VITALS: BP 130/80
[2020-08-07] MEDS ORDERED: EPINEPHrine INJ 1 MG/ML 1ML AMP As Ordered ONE (09:10)
[2020-08-07] MEDS ORDERED: BUPIVACAINE/EPIN 0.5% 30 ML VIAL As Ordered ONE (09:35)
[2020-08-07] MEDS ORDERED: propofoL 500 MG/50 ML VIAL As Ordered ONE ×2 (09:52→10:25)
[2020-08-07] MEDS ORDERED: ceFAZolin 2 GM/D5W 50 ML IV BAG (J0690 PER 500MG) IV ONE (10:23)
[2020-08-07] MEDS ORDERED: TRANEXAMIC ACID 100 MG/ML 10ML VIAL As Ordered ONE (11:54)
--- NOTE | 2020-08-07 13:03 | REP ---
INDICATION: ORIF RIGHT PATELLA. COMPARISON: Comparison CT study and radiographs August 06, 2020.. TECHNIQUE: Fifteen views. 88.1 seconds of fluoroscopy time is reported. FINDINGS: A sequence of 15 last image hold fluoroscopically of some obtained spot radiographs document open reduction internal fixation of patellar fracture. IMPRESSION: Procedural imaging.. <Electronically signed by Jonathan Hurtado > 08/07/20 [id number]
[2020-08-07] MEDS ORDERED: ACETAMINOPHEN 1000MG 100ML IV BTL (OFIRMEV) (J0131 PER 10MG) As Ordered ONE (13:14)
[2020-08-07] MEDS ORDERED: KETOROLAC 60MG 2ML VIAL As Ordered ONE (13:14)
[2020-08-07] MEDS ORDERED: ONDANSETRON 4MG/2ML VIAL IV PRN (13:40)
[2020-08-07] MEDS ORDERED: LR 1,000 ML IV SCH (13:40)
[2020-08-07] MEDS ORDERED: HYDROMORPHONE HCL 0.5 MG/ 0.5 ML SYRINGE (J1170 PER 1) IV PRN (13:40)
[2020-08-07] MEDS ORDERED: PERCOCET 5MG/325MG TAB PO PRN ×2 (14:05)
--- NOTE | 2020-08-07 14:07 | ER ---
ER CONSULTATION DATE: 08/06/2020 CONSULTING SERVICE: Orthopedic surgery. CONSULTING PHYSICIAN: Yvon Mcdonnell M.D. HISTORY OF PRESENT ILLNESS: This is a 55-year-old male with a right patella fracture. The fracture is transverse; however, the inferior fragment of the fracture does have associated comminution. Patient was walking his dog, was tripped by his dog and he sustained a ground level fall to the right lower extremity, landing on his patella. The patient presented to [facility] for further evaluation of the aforementioned diagnosis. Patient was placed in the immobilizer and evaluated by the orthopedic surgeon, myself, upon arrival. PAST MEDICAL HISTORY: Includes: 1. Neurofibroma of the lung. 2. Intubation-induced gastroesophageal reflux disease (GERD). PAST SURGICAL HISTORY: Include: 1. Laminectomy in 1994. 2. Neurofibroma benign lung tumor removal in late 2019. CURRENT MEDICATIONS: Include: - aspirin 325 mg - omeprazole. SOCIAL HISTORY: Patient is a nonsmoker, nondrinker, non-intravenous (non-IV) drug user. ALLERGIES: Denies any allergies to medication. REVIEW OF SYSTEMS: A 14 point review of systems is negative unless otherwise described in the history of present illness (HPI) above. PHYSICAL EXAMINATION: Alert and oriented to person, time and place. RIGHT LOWER EXTREMITY: Patient had tenderness to palpation about the right patella. He had significant hemarthrosis of the right knee with associated swelling appreciated on examination. Patient was not able to do a straight leg raise. The patient's right lower extremity was otherwise neurovascularly intact. He had 5/5 motor strength to the exterior hallucis longus (EHL), flexor hallucis longus (FHL), tibialis, anterior gastroc soleus musculature and peroneal musculature. He had sensation intact to light touch to the deep and superficial peroneal, sural, saphenous and tibial nerve distributions. Patient had no other associated injuries. IMAGING DATA: Patient's right knee radiographs demonstrate a transverse fracture of the patella with proximal retraction of the inferior fragment. Patient did have some relatively significant comminution of the inferior pole with minimally displacement of the comminuted fragments. CT scan of the right knee confirmed the aforementioned findings with comminution of the inferior pole and transverse fracture of the patella. I saw the images myself and evaluated them myself. IMPRESSION: A 55-year-old male with a closed right transverse patella fracture with comminution of an inferior fragment. ASSESSMENT AND PLAN: At this point in time, the patient will be admitted for pain control by the hospitalist service. We plan to proceed with right patella open reduction internal fixation on August 07, 2020. The plan will be to use screws on the right to reduce the inferior comminution fragments and then place cannulated screws across the transverse fracture and then reinforce using FiberWire tied in a figure eight for additional tension band construct. Patient will be nothing by mouth at 11:59 p.m. on August 06, 2020. Patient was notified of the aforementioned plan. The hospitalist service can contact me with any questions regarding the patient's surgery.
[2020-08-07] MEDS: oxyCODONE 5MG TAB PO PRN ×2 (14:09→14:42)
[2020-08-07] MEDS: fentaNYL 100 MCG/2 ML INJECTION (J3010) IV PRN ×4 (14:09→14:27)
[2020-08-07] MEDS ORDERED: ONDANSETRON 4 MG TAB PO PRN (14:10)
[2020-08-07] MEDS: HYDROMORPHONE HCL 0.5 MG/ 0.5 ML SYRINGE (J1170 PER 1) IV PRN ×2 (14:41→14:51)
[2020-08-07 15:15] VITALS: BP 136/81
--- NOTE | 2020-08-07 15:19 | RO ---
OPERATIVE NOTE DATE OF OPERATION: 08/07/2020 TIME: 10:13 a.m. PREOPERATIVE DIAGNOSIS: Right patella comminuted fracture, closed. POSTOPERATIVE DIAGNOSIS: Right patella comminuted fracture, closed. NAME OF OPERATION: 1. Right patella open reduction and internal fixation. 2. Right patella tension banding. SURGEON: Yvon Mcdonnell MD DIRECTOR LEARNING AND DEVELOPMENT: Christopher Drew MD SUPERVISING ATTENDING: Yvon Mcdonnell MD FINDINGS: The patient had a transverse fracture about the right patella with comminution of the inferior fragment. INDICATIONS: This was a 55-year-old male who was doing wind sprints and tripped on his puppy, landing on his right patella, sustaining the aforementioned diagnosis. The patient had loss of extensor mechanism. He was admitted to [facility] on the July, for the aforementioned surgery. The hospitalist then admitted the patient and he underwent the right patella open reduction and internal fixation today as described above. The patient had a past medical history of neurofibroma as well as previous lumbar radiculopathy. He was otherwise healthy and indicated for the aforementioned procedure with spinal anesthesia. ANESTHESIA: Spinal. TOURNIQUET TIME: 120 minutes. ESTIMATED BLOOD LOSS: 50 mL. IV FLUIDS: 2 grams of Ancef, 1 gm of TXA. Please see anesthesia report for more detailed description. IV ANTIBIOTICS: 2 gm of Ancef. IMPLANTS: Synthes. CULTURES: None. SPECIMENS: None. DESCRIPTION OF PROCEDURE: The patient was met in the preoperative holding area where the patient's operative extremity was signed, the patient's consent was confirmed to be correct, and the patient's identity was confirmed to be correct. The patient was then transported to the operating theater where he was placed supine on a radiolucent flat top surgical bed. Safety straps secured the patient to the bed. All bony prominences were well padded. The contralateral lower extremity had an SCD placed. A timeout was called to confirm the correct patient, correct operative extremity and correct consent. All staff was in agreement. The patient was then draped in the usual sterile fashion. We began the procedure by obtaining fluoroscopic imaging of the patient's right knee to aid in anatomical skin markings. I then made a longitudinal incision overlying the patient's right patella using a scalpel for the epidermis. I then used a combination of the [place] and electrocautery to make my way to the patella proper. I evacuated a hematoma within the fracture patella using a rongeur. At this point in time, I identified the fracture. The quadriceps tendon was intact and the patellar tendon was intact. Using a scalpel, I was able to debride the edges of the patellar fracture, both the proximal and inferior fragments. I then turned my attention to the inferior fragment of the patellar fracture which consisted of several comminuted pieces. These were essentially nondisplaced. However, they were unstable. Using a xeaap-gy-aedrc bone reducing clamp, I clamped these stable but very tenuous fragments together and placed a 7-hole, 2.0 mm mini-frag plate transversely across the comminuted portions of the inferior fragment. This was secured using thin wires. I then used fluoroscopic guidance to ensure that we were satisfied with the overall fracture reduction using the adeso-dd-opsmt bone reducing clamp as well as the implant placement. I then placed one cortical screw to secure the plate to the bone, sucking it close to the osseous surface and placed locking screws in holes 1, 2, 5, 7 lateral to medial using unicortical locking screws. I ensured that they did not violate the arterial surface both fluoroscopically as well as visualization as I could see the undersurface of the inferior fragment of the patellar fracture. I then replaced the cortical screws and locking screws within it. There was not a problem within the joint. At this point in time, I was satisfied with our inferior fragment stability and I turned my attention to preparing the cortical edges of the proximal fragment. I then reduced the inferior plated fragment to the superior intact fragment of the right patella. Using jatcn-ch-isnoe bone reducing clamps, I was able to ensure the anatomic reduction of the patient's right patella. Once I was satisfied with articular reduction, I then placed and clean tong, eqtbo-dw-ijtjq bone reducing clamp into position and arterial clips on the articular surface and with near anatomic position. This should be our provisional reduction. I then placed two thin wires in longitudinal fashion beginning at the inferior pole of the right patella and then traversing the fragment and coming out the superior pole. These were used for partially threaded cannulated 4.0 mm screws which should compress the two fragments together. Using fluoroscopy, I confirmed the appropriate length of these threaded guide pins and measured appropriate lengths for the qs-eu-knlnza cannulated screws. I then placed two partially threaded cannulated 4.0 mm screws across the fracture site using fluoroscopy and being sure that the threads were past the transverse fracture. I sequentially threaded these by hand. I removed the side pins and obtained fluoroscopy to ensure that we were satisfied with our two pin reduction as well as our implant placement and there was no violation of the arterial surface of the patella. At this point in time, we turned our attention to the tension band construct and passed a nitinol wire passer through the first more lateral cannulated screws, passing a FiberTape through the more lateral of the two cannulated screws. This was then passed, did the same thing to the medial screw. This was then tied in a tension band construct in order ensure compression of the fracture site with the knee in flexion. We then buried the knot of the aforementioned FiberTape. At this point in time, we copiously irrigated the surface sites and trimmed the most lateral edge of the plate in order to ensure that there was no prominence which could be symptomatic in the future. I then repeated my copious irrigation using three liters of normal saline and placed 1 mL of DBX or demineralized bone matrix within the fracture. I then closed the medial and lateral retinaculum using a #2 braided polyethylene suture and used 0 Vicryl in order to close the periosteum, ensuring that we had covered the mini-frag plate. We then once again copiously irrigated the surgical site, closed dermal layer using 2-0 Vicryl. We closed the skin using a running 3-0 nylon suture. We ensured that the patient remained in extension throughout the remained in extension throughout the entirety of the case. We then placed Xeroform over the surgical incisions followed by 4x4s, ABD pads, Webril and Lauri bandage. The patient was placed in a knee immobilizer. The patient was awoken from anesthesia and transported to the postanesthesia care unit. The patient's care will be transferred to the care of the hospitalist service. He will receive appropriate pain medication per the hospitalist's recommendations. Our recommendations for the postoperative medications include 81 mg of aspirin, 30 Percocet for pain control, Colace twice daily 100 mg for constipation, Zofran 4 mg once every six hours for feeling nauseous and any other appropriate home medications as prescribed by the hospitalist. The patient will follow up in the [facility] orthopedic clinic on August 16 for a postoperative wound check in Dr. Mcdonnell's clinic. He will follow the patella open reduction and internal fixation rehabilitative protocol. The patient's will be notified of the aforementioned findings. CHASE
[2020-08-07 15:45] VITALS: BP 135/82
[2020-08-07] MEDS ORDERED: ZOFR4TAB16 PO (16:22)
[2020-08-07] MEDS ORDERED: ASPI81CH33 PO (16:22)
[2020-08-07] MEDS ORDERED: PERC5TAB12 PO (16:22)
[2020-08-07] MEDS ORDERED: COLA100C5 PO (16:22)
--- NOTE | 2020-08-07 16:30 | IPNPDOC ---
Subjective Date Seen The patient was seen on 08/07/20. Subjective Chief Complaint/HPI Seen post op . No complaints wants to go home. Objective Physical Examination General Exam: Positive: Alert, Cooperative, No Acute Distress Eye Exam: Positive: PERRLA, Conjunctiva & lids normal, EOMI; Negative: Sclera icteric ENT Exam: Positive: Atraumatic, Mucous membr. moist/pink, Pharynx Normal Neck Exam: Positive: Supple; Negative: JVD, thyromegaly Chest Exam: Positive: Clear to auscultation, Normal air movement Heart Exam: Positive: Rate Normal, Regular Rhythm, Normal S1, Normal S2; Negative: Murmurs, Rubs Abdomen Exam: Positive: Normal bowel sounds, Soft; Negative: Tenderness, Hepatospenomegaly Extremity Exam: Positive: Tenderness (right knee), Swelling (right kne), Other (in knee mobilizer with surgical dressing in place. ); Negative: Clubbing, Cyanosis, Edema Skin Exam: Positive: Nl turgor and temperature; Negative: Breakdown, Lesion Assessment /Plan Assessment 55 year old healthy male was running with his dog this morning when he lost control of the least and the leash wrapped around his leg and he fell and injured his right knee. CT scan of the right knee shows transversely oriented d iastatic patellar fracture as above. There are a few droplets of adjacent prepatellar soft tissue emphysema true which would appear to imply the possibility of an open injury. He was seen by ortho in the ED. Has a knee immobilizer on. Plan is to take him to OR on 08/07/20. Right patella comminuted fracture, closed. s/p Right patella open reduction and internal fixation and Right patella tension banding. Pain control with Percocet. ASA 81 mg for DVT prophylaxis. Colace and zofran Activity as per ortho see operative note. Keep knee mobilizer and use crutches Cleared by orthopedics for discharge. Follow up with Dr Mcdonnell on 08/16/20 will dc patient GERD continue omeprazole Plan/VTE VTE Prophylaxis Ordered?: Yes VS, I&O, 24H, Fishbone Vital Signs/I&O Vital Signs Date Time Temp Pulse Resp B/P (MAP) Pulse Ox O2 Delivery O2 Flow Rate FiO2 08/07/20 15:45 97.9 91 18 135/82 (99) 92 Room Air 08/07/20 14:10 2 I&O- Last 24 Hours up to 6 AM 08/07/20 07:00 Intake Total 560 ml Output Total 250 ml Balance 310 ml RAUL MOYER MD Aug 07, 2020 16:30
[2020-08-07] MEDS ORDERED: DOCUSATE SODIUM 100MG CAPSULE PO SCH (21:00)
[2020-08-08] MEDS ORDERED: ASPIRIN 81MG ENTERIC TABLET PO SCH (09:00)
== END 2020-08-07 18:30 | disposition home or self-care (01) ==
LOC: M ED 12:08 → M ED INP 12:09 → ENRESERV 18:30 → M MS5PR 20:35
PROVIDERS: ADMIT Internal Medicine Nephrology; ATTEND Internal Medicine Nephrology
DX: S82.041A Displaced comminuted fracture of right patella, initial encounter for closed fracture (principal); W18.30XA Fall on same level, unspecified, initial encounter; Y93.K1 Activity, walking an animal; Y92.9 Unspecified place or not applicable; Z79.82 Long term (current) use of aspirin; Z79.899 Other long term (current) drug therapy; Z91.81 History of falling
CPT/HCPCS: 27524; 36415; 71045; 73552; 73564; 73590; 73700; 80048; 80076; 85025; 86850; 86900; 86901; 96361; 96374; 96375; 96376; 99284; C1713; C1762; G0378; J0131; J0171; J0690; J1100; J1170; J1885; J2250; J2270; J2405; J3010; U0002

== ENCOUNTER → 2020-08-25 | Outpatient (CLI) | payer MEDICARE, OTHER ==
[~2020-08-25] MED LIST changes: +ASPI-1 PO; +ASPI81CH33 PO; +COLA100C5 PO; +PERC5TAB12 PO; +ZOFR4TAB16 PO
--- NOTE | 2020-08-25 10:17 | REP ---
INDICATION: F/U FX. COMPARISON: 08/06/2020 a pre operative exam TECHNIQUE: AP and lateral FINDINGS: Note is made of previous ORIF patella with 2 cancellous screws and 5 cortical screws affixing the patella and internal fixation plate respectively. There has been reduction of the patellar fragments. No discernible callus formation is seen at this time. There are no additional fractures evident on this two view exam. IMPRESSION: Status post ORIF as described. <Electronically signed by Wilfrido Jackson > 08/25/20 [id number]
== END ==
LOC: M SOG 09:23
PROVIDERS: ATTEND Student in an Organized Health Care Education/Training Program
DX: S82.001D Unspecified fracture of right patella, subsequent encounter for closed fracture with routine healing (principal)

== ENCOUNTER 2020-08-27 05:20 | Day surgery (SDC) | payer MEDICARE, OTHER ==
[~2020-08-27] VITALS: Ht 190.5 cm; Wt 100.5 kg
[2020-08-27] MEDS ORDERED: ASPI81CH33 PO (07:37)
[2020-08-27] MEDS ORDERED: fentaNYL 100 MCG/2 ML INJECTION (J3010) As Ordered ONE (16:43)
[2020-08-27 17:06] VITALS: BP 158/97
--- NOTE | 2020-08-28 16:51 | RO ---
OPERATIVE NOTE DATE OF OPERATION: 08/27/2020 TIME: 1 p.m. PREOPERATIVE DIAGNOSIS: Right patella fracture. POSTOPERATIVE DIAGNOSIS: Right patella fracture. NAME OF OPERATION: Right patella revision, open reduction and internal fixation. SURGEON: Yvon Mcdonnell MD SKI TECHNICIAN: Christopher Drew MD SUPERVISING ATTENDING: Yvon Mcdonnell MD FINDINGS: The patient had a diastasis and screw pullout out of his previous right patella open reduction and internal fixation. INDICATIONS: The patient is a 55-year-old male with a right patella fracture that was initially sustained on the July,. The fracture was a comminuted fracture with a transverse component. The patient underwent a open reduction and internal fixation of the right patella on the July,. The patient was followed up for his full postoperative visit in the [facility] orthopedic clinic for radiographs which noted to have fracture diastasis and screw backout. The patient does not report any noncompliance with knee bending. The patient was indicated for a revision, right patella open reduction and internal fixation for his comminuted right patella fracture. ANESTHESIA: Spinal. TOURNIQUET TIME: 120 minutes followed by a 30 minute tourniquet holiday followed by a 20 minute tourniquet. IV FLUIDS: Please see anesthesia report. IV ANTIBIOTICS: 2 grams of Ancef. IMPLANTS: Synthes. CULTURES: None. SPECIMENS: None. ESTIMATED BLOOD LOSS: 100 mL DESCRIPTION OF PROCEDURE: The patient was met in the preoperative holding area where the patient's operative extremity was signed, the patient's consent was confirmed to be correct, and the patient's identity was confirmed to be correct. The patient was then transported to the operating theater where he was placed in a supine position on the regular surgical flat-top bed. The surgical bed did have a radiolucent foot extension. The safety straps secured the patient to the bed and all bony prominences were well padded. The contralateral lower extremities had an SCD placed. A timeout was called. This confirmed the correct patient, correct operative extremity and correct consent. All staff was in agreement. The patient was then draped in the usual sterile fashion. We began our case by obtaining a full set of imaging to verify the current implant state and fracture diastasis. We then marked out our surgical incision which was in line with the previous longitudinal 4 inch incision overlying the patella. We then inflated the tourniquet to 250 mmHg. We made a skin incision in line with the previous incision, removing Vicryl and FiberWire suture as we progressed. After incising the dermis, we identified our retinaculum and fracture site. We removed our FiberTape tension band construct as well as our retinacular sutures. We made skin flaps on the medial and lateral aspects to expose our fracture. We used fluoroscopic guidance in order to remove our partially threaded 4.0 cannulated screws. After removal of these screws, we then turned our attention to the mini-frag 2.0 mm plate that was secured to the inferior pole. We removed all six screws as well as the plate at this point in time. We identified our fracture site that was near anatomic reduction. We cleaned the transverse fracture site. We then obtained provisional control of both the inferior and posterior fragments using ippfn-gu-tajjo bone reducing-clamps. We were then able to use fluoroscopic guidance to place our inferior to superior clean tong into position across the fracture site. Once we satisfied with this, we then placed our star plate template into position and once we were satisfied with both the fracture reduction as well as the implant placement, we made the appropriate corrections to the template in order to match our true implant with the templated bending of the template. We then removed our template and bent the actual implant to the correct orientation as directed by the templated implant. At this point in time, we then placed our star plate into position and secured this with olive wires. We then placed an inferior to superior transverse fracture crossing cortical screw into position in order to not only compress the fracture across the transverse component but also to ensure that our star plate was carefully positioned. We used fluoroscopic guidance in order to ensure that we made the appropriate length screw as well as fracture reduction. At this point in time, we then placed 16 additional locking screws into position using the locking tower. Each time, we used fluoroscopy to ensure that we were in the appropriate depth. We used the torque wrench in order to ensure that our locking screws were appropriate tensions. We placed our locking screws in the inferior fragments, progressing securely. We were able to make a small rent in the retinaculum to ensure that was no intra-articular penetration of the screw. This was also confirmed with fluoroscopy using multiple views. This, of course, was done with the knee in hyperextension and pleased with our implant placement, we removed our gwxof-gn-ytgzq bone-reducing clamps and obtained final fluoroscopic imaging to ensure that we were satisfied with both our fracture reduction as well as our implant placement. We copiously irrigated the surgical site using three liters of normal saline. Of note, we did place 2 mL of DBX within the transverse fracture component prior to our compression plating. After copious irrigation, we closed the retinaculum using #2 FiberWire braided polyethylene suture. We incorporated the patellar periosteum into the plate. We placed one gram of vancomycin powder into the surgical wound. We then closed all the percutaneous incisions through the patellar tendon using either 0 Vicryl or #2 braided polyethylene suture. We closed the dermal layer using 2-0 Vicryl and closed the epidermis using a running 2-0 nylon suture. We then placed Xeroform followed by 4x4s, ABD pads and Webril over the patient's surgical incision. The patient was the placed into a long-leg ankle sprain cast to ensure hyperextension of the patient's knee for two weeks. The patient was then extubated without complication and transported to the postanesthesia care unit. The patient will follow the patella open reduction and internal fixation rehabilitative protocol. He will be given the appropriate postoperative medication and will be discharged today. He will follow up in our [facility] orthopedic clinic in two weeks for postoperative wound check. His will be notified of the aforementioned proceedings. CHASE
--- NOTE | 2020-08-29 14:37 | REP ---
INDICATION: FRACTURE. COMPARISON: None. TECHNIQUE: Intraoperative fluoroscopic imaging using portable C-arm technique. FINDINGS: Multiple images demonstrate the patient to be status post open reduction and fixation for transverse patellar fracture. Total fluoroscopic time 2 minutes 28 seconds. IMPRESSION: Images consistent with satisfactory open reduction and fixation for transverse patellar fracture. <Electronically signed by Ian Fair > 08/29/20 [id number]
== END 2020-08-28 11:40 | disposition home or self-care (01) ==
LOC: M ED 05:20 → M SDC 05:21 → M MS5PR 17:10 → M SDC 17:11
PROVIDERS: ATTEND Orthopaedic Surgery
DX: S82.041K Displaced comminuted fracture of right patella, subsequent encounter for closed fracture with nonunion (principal); X58.XXXD Exposure to other specified factors, subsequent encounter; T84.218A Breakdown (mechanical) of internal fixation device of other bones, initial encounter; Y79.2 Prosthetic and other implants, materials and accessory orthopedic devices associated with adverse incidents; R20.0 Anesthesia of skin; Z79.82 Long term (current) use of aspirin
CPT/HCPCS: 27524; 76000; 87798; 99284; C1713; C1762; J0131; J0171; J0690; J2250; J2270; J2405; J3010; J3370

== ENCOUNTER 2020-08-27 05:22 | Day surgery (SDC) | payer MEDICARE, OTHER ==
[~2020-08-27] VITALS: Ht 190.5 cm; Wt 97.7 kg
[2020-08-27] MEDS ORDERED: ASPI81CH33 PO (07:37)
[2020-08-27] MEDS ORDERED: ceFAZolin 2 GM/D5W 50 ML IV BAG (J0690 PER 500MG) As Ordered ONE (11:43)
[2020-08-27] MEDS ORDERED: propofoL 200 MG/20 ML VIAL As Ordered ONE ×5 (13:04→15:28)
[2020-08-27] MEDS ORDERED: ONDANSETRON 4MG/2ML VIAL As Ordered ONE (13:23)
[2020-08-27] MEDS ORDERED: LIDOCAINE 2% 100MG/5ML SDV (FOR ANES.) As Ordered ONE (13:23)
[2020-08-27] MEDS ORDERED: EPINEPHrine INJ 1 MG/ML 1ML AMP As Ordered ONE (13:23)
[2020-08-27] MEDS ORDERED: MIDAZOLAM INJ 2MG/2ML VIAL (J2250 PER 1MG) As Ordered ONE (13:23)
[2020-08-27] MEDS ORDERED: fentaNYL 100 MCG/2 ML INJECTION (J3010) As Ordered ONE (13:23)
[2020-08-27] MEDS ORDERED: propofoL 500 MG/50 ML VIAL As Ordered ONE (13:23)
[2020-08-27] MEDS ORDERED: TRANEXAMIC ACID 100 MG/ML 10ML VIAL As Ordered ONE (14:12)
[2020-08-27] MEDS ORDERED: ACETAMINOPHEN 1000MG 100ML IV BTL (OFIRMEV) (J0131 PER 10MG) As Ordered ONE (14:34)
[2020-08-27] MEDS ORDERED: VANCOMYCIN 1000MG/20ML VIAL As Ordered ONE (14:57)
[2020-08-27] MEDS ORDERED: oxyCODONE 5MG TAB PO PRN ×2 (16:10→16:20)
[2020-08-27] MEDS ORDERED: LR 1,000 ML IV SCH (16:10)
[2020-08-27] MEDS ORDERED: ONDANSETRON 4MG/2ML VIAL IV PRN ×2 (16:10→17:40)
[2020-08-27] MEDS: fentaNYL 100 MCG/2 ML INJECTION (J3010) IV PRN ×2 (16:44→16:50)
[2020-08-27 17:15] VITALS: BP 142/80
[2020-08-27] MEDS ORDERED: PERCOCET 5MG/325MG TAB PO PRN (17:40)
[2020-08-27] MEDS ORDERED: MORPHINE 4 MG/ML 1ML VIAL/SYRINGE (J2270) IV PRN (17:40)
[2020-08-27 17:45] VITALS: BP 140/82
[2020-08-27 18:45] VITALS: BP 145/75
[2020-08-27 19:45] VITALS: BP 144/75
[2020-08-27] MEDS: PERCOCET 5MG/325MG TAB PO PRN (20:07)
[2020-08-27 20:46] VITALS: BP 142/75
[2020-08-27 21:45] VITALS: BP 144/74
[2020-08-27] MEDS ORDERED: oxyCODONE 5MG TAB PO ONE (22:55)
[2020-08-28] MEDS: PERCOCET 5MG/325MG TAB PO PRN ×3 (00:25→10:25)
[2020-08-28 02:00] VITALS: BP 141/74
[2020-08-28 06:00] VITALS: BP 122/72
[2020-08-28 10:00] VITALS: BP 135/75
--- NOTE | 2020-08-29 14:37 | REP ---
INDICATION: FRACTURE. COMPARISON: None. TECHNIQUE: Intraoperative fluoroscopic imaging using portable C-arm technique. FINDINGS: Multiple images demonstrate the patient to be status post open reduction and fixation for transverse patellar fracture. Total fluoroscopic time 2 minutes 28 seconds. IMPRESSION: Images consistent with satisfactory open reduction and fixation for transverse patellar fracture. <Electronically signed by Ian Fair > 08/29/20 [id number]
== END 2020-08-28 11:40 | disposition home or self-care (01) ==
LOC: M SDC 05:22 → M MS5PR 17:10 → M SDC 08-28 11:40
PROVIDERS: ATTEND Orthopaedic Surgery
DX: S82.041K Displaced comminuted fracture of right patella, subsequent encounter for closed fracture with nonunion (principal); X58.XXXD Exposure to other specified factors, subsequent encounter; T84.218A Breakdown (mechanical) of internal fixation device of other bones, initial encounter; Y79.2 Prosthetic and other implants, materials and accessory orthopedic devices associated with adverse incidents; R20.0 Anesthesia of skin; Z79.82 Long term (current) use of aspirin
CPT/HCPCS: 27524; 76000; 87798; 99284; J0131; J0171; J0690; J2250; J2270; J2405; J3010; J3370

== ENCOUNTER → 2020-09-20 | Outpatient (CLI) | payer MEDICARE, OTHER ==
--- NOTE | 2020-09-20 11:32 | REP ---
INDICATION: F/U FX. COMPARISON: 09/08/2020. TECHNIQUE: Three views right knee. FINDINGS: Extensive metallic internal fixation is again noted in the patella unchanged. There is a patellar fracture which is well aligned. IMPRESSION: No significant change in the appearance of the patella compared to prior study. <Electronically signed by Willy Mai > 09/20/20 1121
== END ==
LOC: M SOG 10:00
PROVIDERS: ATTEND Orthopaedic Surgery
DX: S82.044D Nondisplaced comminuted fracture of right patella, subsequent encounter for closed fracture with routine healing (principal)

== ENCOUNTER 2020-10-05 09:20 | Outpatient (RCR) | payer MEDICARE, OTHER | END 2020-10-10 | LOC: M PT 09:20 | PROVIDERS: ATTEND Orthopaedic Surgery | DX: M25.561 Pain in right knee (principal); Z98.890 Other specified postprocedural states ==

== ENCOUNTER → 2020-10-20 | Outpatient (CLI) | payer MEDICARE, OTHER ==
--- NOTE | 2020-10-20 11:31 | REP ---
INDICATION: DISPLACED COMMINUTED FRACTURE OF RIGHT PATELLA. COMPARISON: 09/20/2020. TECHNIQUE: Two views right knee. FINDINGS: Extensive metallic internal fixation is again seen in the patella. There is no change in alignment. Mild linear calcification is seen in the distal quadriceps tendon. There appears to be a small suprapatellar effusion. IMPRESSION: Stable exam. <Electronically signed by Willy Mai > 10/20/20 1121
== END ==
LOC: M SOG 08:41
PROVIDERS: ATTEND Orthopaedic Surgery
DX: M25.461 Effusion, right knee (principal); S82.041A Displaced comminuted fracture of right patella, initial encounter for closed fracture; X58.XXXA Exposure to other specified factors, initial encounter; Y92.89 Other specified places as the place of occurrence of the external cause

== ENCOUNTER 2020-11-08 09:25 | Outpatient (RCR) | payer MEDICARE, OTHER | END 2020-11-09 | LOC: M PT 09:25 | PROVIDERS: ATTEND Orthopaedic Surgery | DX: M54.2 Cervicalgia (principal); M25.572 Pain in left ankle and joints of left foot ==

== ENCOUNTER → 2020-11-17 | Outpatient (CLI) | payer MEDICARE, OTHER ==
--- NOTE | 2020-11-17 12:16 | REP ---
INDICATION: NONDISP CPMMNT FX PATELLA, SURGICAL AFTERCARE. COMPARISON: 10/21/2019 TECHNIQUE: AP and lateral views of the right knee FINDINGS: Patient is again noted to be status post fixation for patellar fracture. Overlying soft tissue swelling and suprapatellar effusion again noted. No significant change from prior examination. IMPRESSION: No significant change from prior examination. Soft tissue swelling and suprapatellar effusion again noted. <Electronically signed by Ian Fair > 11/17/20 [id number]
== END ==
LOC: M SOG 09:14
PROVIDERS: ATTEND Orthopaedic Surgery
DX: Z47.89 Encounter for other orthopedic aftercare (principal); S82.044D Nondisplaced comminuted fracture of right patella, subsequent encounter for closed fracture with routine healing; M25.461 Effusion, right knee

== ENCOUNTER 2020-11-22 09:30 | Outpatient (RCR) | payer MEDICARE, OTHER | END 2020-12-10 | LOC: M PT 09:30 | PROVIDERS: ATTEND Orthopaedic Surgery | DX: Z47.89 Encounter for other orthopedic aftercare (principal); Z98.890 Other specified postprocedural states ==

== ENCOUNTER → 2021-02-08 | Outpatient (CLI) | payer MEDICARE, OTHER ==
[~2021-02-08] MED LIST changes: +PROHANCE 279.3MG/ML 15ML VIAL ONE; +PROHANCE 279.3MG/ML 5ML VIAL ONE
--- NOTE | 2021-02-08 22:58 | REPVR ---
PROCEDURE INFORMATION: Exam: MR Neck Without and With Contrast Exam date and time: 02/08/2021 9:08 AM Age: 55 years old Clinical indication: Condition or disease; Other: HX benign tumor removal; Prior surgery; Surgery date: 6+ months; Additional info: S/P resection, ganglioneuroma, tumor growth TECHNIQUE: Imaging protocol: MR images of the neck without and with intravenous contrast. Contrast material: PROHANCE; Contrast volume: 19 ml; Contrast route: INTRAVENOUS (IV); COMPARISON: CT Neck with contrast 02/04/2020 9:25 AM FINDINGS: Pharynx: Unremarkable. Larynx: Unremarkable. Submandibular/Parotid glands: Unremarkable. Retropharyngeal space: Unremarkable. Vasculature: Unremarkable. Lymph nodes: No lymphadenopathy. Soft tissues: Small residual 1.6 cm mildly enhancing solid soft tissue mass anterior to the posterior aspect of the right 1st rib, partially abutting the origin of the right vertebral artery, overall markedly decreased in size when compared with prior CT neck from 02/04/2020. No new soft tissue lesions identified. Bones/joints: Unremarkable. IMPRESSION: Small residual 1.6 cm mildly enhancing solid soft tissue mass anterior to the posterior aspect of the right 1st rib, partially abutting the origin of the right vertebral artery, overall markedly decreased in size when compared with prior CT neck from 02/04/2020. Continued interval follow-up at the discretion of surgery. Electronically signed by: Boaz Landis On 02/08/2021 22:58:09 PM
== END ==
LOC: M PLAIMG 07:42
PROVIDERS: ATTEND Neurological Surgery
DX: D36.10 Benign neoplasm of peripheral nerves and autonomic nervous system, unspecified (principal)
CPT/HCPCS: 70543; A9576

== ENCOUNTER → 2021-03-21 | Outpatient (CLI) | payer MEDICARE, OTHER ==
[~2021-03-21] MED LIST changes: -PROHANCE 279.3MG/ML 15ML VIAL ONE; -PROHANCE 279.3MG/ML 5ML VIAL ONE
--- NOTE | 2021-03-21 09:58 | REP ---
INDICATION: RT PATELLAR FX. COMPARISON: 11/17/2020 TECHNIQUE: Two views FINDINGS: Previously described patellar ORIF is unchanged. There are no new fractures. IMPRESSION: No acute osseous abnormalities. <Electronically signed by Wilfrido Jackson > 03/21/21 [id number]
== END ==
LOC: M SOG 07:47
PROVIDERS: ATTEND Orthopaedic Surgery
DX: S82.041D Displaced comminuted fracture of right patella, subsequent encounter for closed fracture with routine healing (principal); Y92.9 Unspecified place or not applicable; Y93.9 Activity, unspecified; Y99.9 Unspecified external cause status

== ENCOUNTER → 2021-05-05 | Outpatient (CLI) | payer MEDICARE, OTHER ==
[2021-05-05 09:33] LABS: ALBUMIN 4.3 GM/DL (3.2-5.2); ALT/SGPT 38 U/L (12-78); BILIRUBIN,TOTAL 0.9 MG/DL (0.2-1.0); BLOOD UREA NITROGEN 12 MG/DL (7-18); CALCIUM LEVEL 8.9 MG/DL (8.5-10.1); CARBON DIOXIDE LEVEL 28 MEQ/L (21-32); CHLORIDE LEVEL 106 MEQ/L (98-107); CHOLESTEROL LEVEL 147 MG/DL (<200); CHOLESTEROL RISK RATIO 3.769 (<5); CREATININE FOR GFR 0.89 MG/DL (0.70-1.30); GLOMERULAR FILTRATION RATE > 60.0 (>56); GLUCOSE, FASTING 94 MG/DL (70-100); HDL CHOLESTEROL 39 MG/DL (>40); LDL CHOLESTEROL 80 MG/DL (<100); NON-HDL-C 108 MG/DL; POTASSIUM SERUM 4.5 MEQ/L (3.5-5.1); SODIUM LEVEL 141 MEQ/L (136-145); TOTAL PROTEIN 8.2 GM/DL (6.4-8.2); TRIGLYCERIDES LEVEL 140 MG/DL (<150)
== END ==
LOC: M LAB 08:17
PROVIDERS: ATTEND Nurse Practitioner Family
DX: Z00.00 Encounter for general adult medical examination without abnormal findings (principal)

== ENCOUNTER → 2021-11-16 | Outpatient (CLI) | payer MEDICARE, OTHER ==
[2021-11-16 10:26] LABS: BASO % 0.6 % (0.0-1.0); EOS # 0.1 10^3/uL (0.0-0.5); EOS % 0.9 % (0.0-3.0); HEMATOCRIT 43.1 % (42.0-52.0); HEMOGLOBIN 14.8 g/dl (13.5-17.5); LYMPH # 1.1 10^3/uL (1.5-5.0); LYMPH % 21.1 % (24.0-44.0); MEAN CORPUSCULAR HEMOGLOBIN 29.4 pg (27.0-33.0); MEAN CORPUSCULAR HGB CONC 34.3 g/dl (32.0-36.5); MEAN CORPUSCULAR VOLUME 85.7 fl (80.0-96.0); MONO # 0.4 10^3/uL (0.0-0.8); MONO % 7.3 % (2.0-8.0); NEUTROPHILS # 3.7 10^3/uL (1.5-8.5); NEUTROPHILS % 69.7 % (36.0-66.0); PLATELET COUNT, AUTOMATED 198 10^3/uL (150-450); RED BLOOD COUNT 5.03 10^6/uL (4.30-6.10); WHITE BLOOD COUNT 5.3 10^3/uL (4.0-10.0)
[2021-11-16 11:00] LABS: ALBUMIN 4.3 GM/DL (3.2-5.2); ALT/SGPT 38 U/L (12-78); BILIRUBIN,TOTAL 1.1 MG/DL (0.2-1.0); BLOOD UREA NITROGEN 8 MG/DL (7-18); CALCIUM LEVEL 9.1 MG/DL (8.5-10.1); CARBON DIOXIDE LEVEL 26 MEQ/L (21-32); CHLORIDE LEVEL 107 MEQ/L (98-107); CREATININE FOR GFR 0.98 MG/DL (0.70-1.30); GLOMERULAR FILTRATION RATE > 60.0 (>56); GLUCOSE, FASTING 141 MG/DL (70-100); MAGNESIUM LEVEL 1.9 MG/DL (1.8-2.4); POTASSIUM SERUM 4.1 MEQ/L (3.5-5.1); RHEUMATOID FACTOR QUANT 11.8 IU/ML (<15.0); SODIUM LEVEL 139 MEQ/L (136-145); TOTAL PROTEIN 7.8 GM/DL (6.4-8.2)
[2021-11-16 11:16] LABS: VITAMIN B12 LEVEL 264 PG/ML
[2021-11-16 11:17] LABS: FOLATE 20.6 NG/ML
[2021-11-17 18:09] LABS: ANTINUCLEAR ANTIBODIES DIRECT Negative (Negative); IgG P18 AB Absent (.); IgG P23 AB Absent (.); IgG P28 AB Present (.); IgG P30 AB Absent (.); IgG P39 AB Absent (.); IgG P41 AB Present (.); IgG P45 AB Absent (.); IgG P66 AB Absent (.); IgG P93 AB Absent (.); IgM P23 AB Absent (.); IgM P39 AB Absent (.); IgM P41 AB Absent (.); LYME IgG WB INTERPRETATION Negative (.); LYME IgM WB INTERPRETATION Negative (.)
== END ==
LOC: M RAD 09:31
PROVIDERS: ATTEND Nurse Practitioner Family
DX: R10.2 Pelvic and perineal pain (principal); R25.2 Cramp and spasm

== ENCOUNTER → 2021-11-16 | Outpatient (CLI) | payer MEDICARE, OTHER | LOC: M SOG 08:25 | PROVIDERS: ATTEND Orthopaedic Surgery | DX: Z47.89 Encounter for other orthopedic aftercare (principal) ==

== ENCOUNTER → 2022-11-02 | Outpatient (CLI) | payer MEDICARE, OTHER ==
[2022-11-02 09:16] LABS: ALBUMIN 4.1 G/DL (3.2-5.2); ALKALINE PHOSPHATASE 112 U/L (46-116); ALT/SGPT 39 U/L (7.0-40); AST/SGOT 29 U/L (<34); BILIRUBIN,TOTAL 1.1 MG/DL (0.3-1.2); BLOOD UREA NITROGEN 13 MG/DL (9-23); CALCIUM LEVEL 8.7 MG/DL (8.5-10.1); CARBON DIOXIDE LEVEL 28 MMOL/L (20-31); CHLORIDE LEVEL 106 MMOL/L (98-107); CHOLESTEROL LEVEL 132 MG/DL (<200); CHOLESTEROL RISK RATIO 3.16 (<5); CREATININE FOR GFR 0.88 MG/DL (0.70-1.30); GLOMERULAR FILTRATION RATE > 60.0 (>56); GLUCOSE, FASTING 96 MG/DL (60-100); HDL CHOLESTEROL 41.7 MG/DL (>40); LDL CHOLESTEROL 64.1 MG/DL (<100); NON-HDL-C 90.3 MG/DL; POTASSIUM SERUM 4.3 MMOL/L (3.5-5.1); SODIUM LEVEL 139 MMOL/L (136-145); TOTAL PROTEIN 7.1 G/DL (5.7-8.2); TRIGLYCERIDES LEVEL 131 MG/DL (<150)
== END ==
LOC: M LAB 08:05
PROVIDERS: ATTEND Nurse Practitioner Family
DX: Z00.00 Encounter for general adult medical examination without abnormal findings (principal); Z79.899 Other long term (current) drug therapy

== ENCOUNTER → 2023-02-20 | Outpatient (REF) | payer MEDICARE, OTHER | LOC: M LAB REF 15:32 | PROVIDERS: ATTEND Nurse Practitioner Family | DX: J02.9 Acute pharyngitis, unspecified (principal) ==

== ENCOUNTER → 2023-03-19 | Outpatient (CLI) | payer MEDICARE, OTHER ==
[2023-03-19 14:51] LABS: BASO % 0.6 % (0.0-1.0); EOS # 0.1 10^3/uL (0.0-0.5); EOS % 0.9 % (0.0-3.0); HEMATOCRIT 43.9 % (42.0-52.0); HEMOGLOBIN 14.9 g/dl (13.5-17.5); LYMPH # 1.6 10^3/uL (1.5-5.0); LYMPH % 23.9 % (24.0-44.0); MEAN CORPUSCULAR HGB CONC 33.9 g/dl (32.0-36.5); MEAN CORPUSCULAR VOLUME 88.3 fl (80.0-96.0); MONO # 0.5 10^3/uL (0.0-0.8); NEUTROPHILS # 4.4 10^3/uL (1.5-8.5); NEUTROPHILS % 66.3 % (36.0-66.0); PLATELET COUNT, AUTOMATED 214 10^3/uL (150-450); RED BLOOD COUNT 4.97 10^6/uL (4.30-6.10); WHITE BLOOD COUNT 6.6 10^3/uL (4.0-10.0)
[2023-03-19 15:15] LABS: BLOOD UREA NITROGEN 24 MG/DL (9-23); CALCIUM LEVEL 9.3 MG/DL (8.5-10.1); CARBON DIOXIDE LEVEL 27 MMOL/L (20-31); CHLORIDE LEVEL 105 MMOL/L (98-107); CPK CREATINE PHOSPHOKINASE 723 U/L (46-171); CREATININE FOR GFR 0.97 MG/DL (0.70-1.30); GLOMERULAR FILTRATION RATE > 60.0 (>56); GLUCOSE, FASTING 119 MG/DL (60-100); MAGNESIUM LEVEL 1.8 MG/DL (1.8-2.4); POTASSIUM SERUM 4.4 MMOL/L (3.5-5.1); SODIUM LEVEL 140 MMOL/L (136-145)
== END ==
LOC: M LAB 14:07
PROVIDERS: ATTEND Nurse Practitioner Family
DX: R25.2 Cramp and spasm (principal); M79.10 Myalgia, unspecified site

== ENCOUNTER → 2023-03-28 | Outpatient (CLI) | payer MEDICARE, OTHER ==
[2023-03-28 09:02] LABS: BLOOD UREA NITROGEN 16 MG/DL (9-23); CALCIUM LEVEL 9.2 MG/DL (8.5-10.1); CARBON DIOXIDE LEVEL 26 MMOL/L (20-31); CHLORIDE LEVEL 104 MMOL/L (98-107); CPK CREATINE PHOSPHOKINASE 514 U/L (46-171); CREATININE FOR GFR 0.94 MG/DL (0.70-1.30); GLOMERULAR FILTRATION RATE > 60.0 (>56); GLUCOSE, FASTING 94 MG/DL (60-100); POTASSIUM SERUM 3.7 MMOL/L (3.5-5.1); SODIUM LEVEL 138 MMOL/L (136-145)
== END ==
LOC: M LAB 08:06
PROVIDERS: ATTEND Nurse Practitioner Family
DX: M79.10 Myalgia, unspecified site (principal); R25.2 Cramp and spasm

== ENCOUNTER → 2023-04-03 | Outpatient (CLI) | payer MEDICARE, OTHER ==
[2023-04-03 08:21] LABS: BLOOD UREA NITROGEN 16 MG/DL (9-23); CALCIUM LEVEL 9.1 MG/DL (8.5-10.1); CARBON DIOXIDE LEVEL 27 MMOL/L (20-31); CHLORIDE LEVEL 106 MMOL/L (98-107); CPK CREATINE PHOSPHOKINASE 378 U/L (46-171); CREATININE FOR GFR 0.84 MG/DL (0.70-1.30); GLOMERULAR FILTRATION RATE > 60.0 (>56); GLUCOSE, FASTING 80 MG/DL (60-100); POTASSIUM SERUM 4.5 MMOL/L (3.5-5.1); SODIUM LEVEL 140 MMOL/L (136-145)
== END ==
LOC: M LAB 07:03
PROVIDERS: ATTEND Nurse Practitioner Family
DX: M79.10 Myalgia, unspecified site (principal); R25.2 Cramp and spasm

== ENCOUNTER → 2023-04-24 | Outpatient (CLI) | payer MEDICARE, OTHER ==
[~2023-04-24] MED LIST changes: +PROHANCE 279.3MG/ML 15ML VIAL As Ordered ONE; +PROHANCE 279.3MG/ML 5ML VIAL As Ordered ONE
== END ==
LOC: M RAD 10:41
PROVIDERS: ATTEND Neurological Surgery
DX: D36.10 Benign neoplasm of peripheral nerves and autonomic nervous system, unspecified (principal)
CPT/HCPCS: 70543; A9576

== ENCOUNTER 2023-06-09 18:31 | Emergency (ER) | payer MEDICARE, OTHER ==
[~2023-06-09] VITALS: Ht 190.5 cm; Wt 109.2 kg
[~2023-06-09 18:31] MED LIST changes: -PROHANCE 279.3MG/ML 15ML VIAL As Ordered ONE; -PROHANCE 279.3MG/ML 5ML VIAL As Ordered ONE
[2023-06-09] MEDS ORDERED: KETOROLAC 30 MG/ML 1ML VIAL IV ONE (19:20)
[2023-06-09] MEDS ORDERED: LORazepam 2 MG/ML 1ML VIAL IV STA (19:40)
[2023-06-09 20:07] LABS: BASO # 0.1 10^3/uL (0.0-0.2); BASO % 0.7 % (0.0-1.0); EOS # 0.1 10^3/uL (0.0-0.5); EOS % 1.7 % (0.0-3.0); HEMATOCRIT 43.4 % (42.0-52.0); HEMOGLOBIN 15.3 g/dl (13.5-17.5); LYMPH # 1.9 10^3/uL (1.5-5.0); LYMPH % 24.7 % (24.0-44.0); MEAN CORPUSCULAR HEMOGLOBIN 30.4 pg (27.0-33.0); MEAN CORPUSCULAR HGB CONC 35.3 g/dl (32.0-36.5); MEAN CORPUSCULAR VOLUME 86.1 fl (80.0-96.0); MONO # 0.6 10^3/uL (0.0-0.8); MONO % 8.4 % (2.0-8.0); NEUTROPHILS # 4.8 10^3/uL (1.5-8.5); NEUTROPHILS % 64.1 % (36.0-66.0); PLATELET COUNT, AUTOMATED 249 10^3/uL (150-450); RED BLOOD COUNT 5.04 10^6/uL (4.30-6.10); WHITE BLOOD COUNT 7.5 10^3/uL (4.0-10.0)
[2023-06-09 20:21] LABS: LIPASE 64 U/L (12-53)
[2023-06-09 20:23] LABS: ALKALINE PHOSPHATASE 145 U/L (46-116); ALT/SGPT 65 U/L (7.0-40); AST/SGOT 38 U/L (<34); BILIRUBIN,DIRECT < 0.1 MG/DL (<0.4); BILIRUBIN,TOTAL 0.4 MG/DL (0.3-1.2); BLOOD UREA NITROGEN 17 MG/DL (9-23); CALCIUM LEVEL 9.1 MG/DL (8.5-10.1); CARBON DIOXIDE LEVEL 26 MMOL/L (20-31); CHLORIDE LEVEL 105 MMOL/L (98-107); CK-MB VALUE MASS < 1.0 NG/ML (<3.6); CREATININE FOR GFR 0.91 MG/DL (0.70-1.30); GLOMERULAR FILTRATION RATE > 60.0 (>56); GLUCOSE, FASTING 110 MG/DL (60-100); POTASSIUM SERUM 3.9 MMOL/L (3.5-5.1); SODIUM LEVEL 139 MMOL/L (136-145); TOTAL PROTEIN 7.7 G/DL (5.7-8.2)
[2023-06-09 20:25] LABS: INR 1.02; PROTHROMBIN TIME 13.1 SECONDS (12.5-14.5)
[2023-06-09 20:27] LABS: THYROID STIMULATING HORMONE 3.867 uIU/ML (0.55-4.78)
[2023-06-09 20:28] LABS: CPK CREATINE PHOSPHOKINASE 193 U/L (46-171); FREE T4 1.06 NG/DL (0.89-1.76); MB/CK RELATIVE INDEX 0.51 (< OR =4)
[2023-06-09] MEDS ORDERED: ISOVUE-370 76% 100ML VIAL As Ordered ONE (21:02)
[2023-06-09 21:30] LABS: CK-MB VALUE MASS < 1.0 NG/ML (<3.6)
[2023-06-09 21:31] LABS: CPK CREATINE PHOSPHOKINASE 190 U/L (46-171); MB/CK RELATIVE INDEX 0.52 (< OR =4)
[2023-06-09] MEDS ORDERED: NAPR-837 PO (22:00)
[2023-06-09 22:12] VITALS: BP 146/78; TEMP 98; O2SAT 99
== END 2023-06-09 23:54 | disposition home or self-care (01) ==
LOC: M ED 18:31
DX: R07.89 Other chest pain (principal); G89.29 Other chronic pain; M54.9 Dorsalgia, unspecified
CPT/HCPCS: 71045; 71275; 74177; 80048; 80076; 82550; 82553; 83690; 83880; 84439; 84443; 84484; 85025; 85610; 87486; 87581; 87633; 87798; 93005; 93041; 93970; 94760; 96374; 96375; 99284; J1885; J2060; Q9967

== ENCOUNTER → 2023-06-13 | Outpatient (CLI) | payer MEDICARE, OTHER ==
[~2023-06-13] MED LIST changes: +NAPR-837 PO
== END ==
LOC: M PLAIMG 12:19
PROVIDERS: ATTEND Specialist
DX: M50.00 Cervical disc disorder with myelopathy, unspecified cervical region (principal); M48.061 Spinal stenosis, lumbar region without neurogenic claudication

== ENCOUNTER → 2023-06-14 | Outpatient (CLI) | payer MEDICARE, OTHER | LOC: M PLAIMG 11:07 | PROVIDERS: ATTEND Specialist | DX: M54.2 Cervicalgia (principal) ==

== ENCOUNTER → 2023-06-19 | Outpatient (CLI) | payer MEDICARE, OTHER | LOC: M LAB 10:10 | PROVIDERS: ATTEND Nurse Practitioner Family | DX: G72.9 Myopathy, unspecified (principal) ==

== ENCOUNTER → 2024-02-08 | Outpatient (CLI) | payer MEDICARE, OTHER | LOC: M RAD 12:19 | PROVIDERS: ATTEND Neurological Surgery | DX: M48.061 Spinal stenosis, lumbar region without neurogenic claudication (principal); M54.16 Radiculopathy, lumbar region ==

== ENCOUNTER → 2024-02-18 | Outpatient (CLI) | payer MEDICARE, OTHER ==
[2024-02-18 11:37] LABS: BASO % 0.5 % (0.0-1.0); EOS % 0.5 % (0.0-3.0); HEMATOCRIT 41.2 % (42.0-52.0); HEMOGLOBIN 14.4 g/dl (13.5-17.5); LYMPH # 1.2 10^3/uL (1.5-5.0); LYMPH % 20.9 % (24.0-44.0); MEAN CORPUSCULAR HEMOGLOBIN 30.4 pg (27.0-33.0); MEAN CORPUSCULAR VOLUME 86.9 fl (80.0-96.0); MONO # 0.6 10^3/uL (0.0-0.8); MONO % 9.4 % (2.0-8.0); NEUTROPHILS % 68.4 % (36.0-66.0); PLATELET COUNT, AUTOMATED 199 10^3/uL (150-450); RED BLOOD COUNT 4.74 10^6/uL (4.30-6.10); WHITE BLOOD COUNT 5.8 10^3/uL (4.0-10.0)
[2024-02-18 11:51] LABS: INR 1.11; PARTIAL THROMBOPLASTIN TIME 25.7 SECONDS (24.8-34.2)
[2024-02-18 11:57] LABS: APPEARANCE, URINE CLEAR (CLEAR); BACTERIA, URINE AUTO NEGATIVE (NEGATIVE); BILIRUBIN, URINE AUTO NEGATIVE (NEGATIVE); BLOOD, URINE BLOOD NEGATIVE (NEGATIVE); COLOR, URINE YELLOW (YELLOW); GLUCOSE, URINE (UA) AUTO NEGATIVE (NEGATIVE); KETONE, URINE AUTO NEGATIVE (NEGATIVE); LEUKOCYTE ESTERASE, URINE AUTO NEGATIVE (NEGATIVE); MUCUS, URINE SMALL (NEGATIVE); NITRITE, URINE AUTO NEGATIVE (NEGATIVE); PROTEIN, URINE AUTO NEGATIVE (NEGATIVE); RBC, URINE AUTO 0 /HPF (0-3); SQUAMOUS EPITHELIAL CELL UR AU 0 /HPF (0-6); UROBILINOGEN, URINE AUTO 0.2 mg/dL (0.0-2.0); WBC, URINE AUTO 0 /HPF (0-3)
[2024-02-18 12:23] LABS: ALBUMIN 4.1 G/DL (3.2-5.2); ALKALINE PHOSPHATASE 136 U/L (46-116); ALT/SGPT 84 U/L (7.0-40); AST/SGOT 54 U/L (<34); BLOOD UREA NITROGEN 15 MG/DL (9-23); CALCIUM LEVEL 9.6 MG/DL (8.5-10.1); CARBON DIOXIDE LEVEL 26 MMOL/L (20-31); CHLORIDE LEVEL 106 MMOL/L (98-107); CHOLESTEROL LEVEL 164 MG/DL (<200); CHOLESTEROL RISK RATIO 4.18 (<5); CREATININE FOR GFR 0.94 MG/DL (0.70-1.30); GLOMERULAR FILTRATION RATE > 60.0 (>56); GLUCOSE, FASTING 95 MG/DL (60-100); HDL CHOLESTEROL 39.2 MG/DL (>40); NON-HDL-C 124.8 MG/DL; POTASSIUM SERUM 4.1 MMOL/L (3.5-5.1); SODIUM LEVEL 138 MMOL/L (136-145); TOTAL PROTEIN 7.5 G/DL (5.7-8.2); TRIGLYCERIDES LEVEL 174 MG/DL (<150)
== END ==
LOC: M LAB 10:48
PROVIDERS: ATTEND Nurse Practitioner Family
DX: Z01.818 Encounter for other preprocedural examination (principal); Z79.899 Other long term (current) drug therapy

== ENCOUNTER → 2024-05-28 | Outpatient (REF) | payer MEDICARE, OTHER | LOC: M SFHCDERM 12:48 | PROVIDERS: ATTEND Nurse Practitioner Family | DX: L73.8 Other specified follicular disorders (principal) ==

== ENCOUNTER → 2024-06-18 | Outpatient (CLI) | payer MEDICARE, OTHER | LOC: M RAD 09:13 | PROVIDERS: ATTEND Nurse Practitioner Family | DX: M65.231 Calcific tendinitis, right forearm (principal) ==

== ENCOUNTER → 2024-08-06 | Outpatient (CLI) | payer MEDICARE, OTHER ==
[2024-08-06 08:36] LABS: BASO % 0.8 % (0.0-1.0); EOS # 0.1 10^3/uL (0.0-0.5); EOS % 1.9 % (0.0-3.0); HEMATOCRIT 45.4 % (42.0-52.0); HEMOGLOBIN 15.8 g/dl (13.5-17.5); LYMPH # 1.5 10^3/uL (1.5-5.0); LYMPH % 30.3 % (24.0-44.0); MEAN CORPUSCULAR HGB CONC 34.8 g/dl (32.0-36.5); MEAN CORPUSCULAR VOLUME 86.3 fl (80.0-96.0); MONO # 0.5 10^3/uL (0.0-0.8); MONO % 11.1 % (2.0-8.0); NEUTROPHILS # 2.7 10^3/uL (1.5-8.5); NEUTROPHILS % 55.3 % (36.0-66.0); PLATELET COUNT, AUTOMATED 209 10^3/uL (150-450); RED BLOOD COUNT 5.26 10^6/uL (4.30-6.10); WHITE BLOOD COUNT 4.9 10^3/uL (4.0-10.0)
[2024-08-06 09:10] LABS: ALBUMIN 4.1 G/DL (3.2-5.2); ALKALINE PHOSPHATASE 138 U/L (40-129); ALT/SGPT 73 U/L (7.0-40); AST/SGOT 44 U/L (<34); BILIRUBIN,TOTAL 0.7 MG/DL (0.3-1.2); BLOOD UREA NITROGEN 15 MG/DL (9-23); CALCIUM LEVEL 9.1 MG/DL (8.5-10.1); CARBON DIOXIDE LEVEL 28 MMOL/L (20-31); CHLORIDE LEVEL 103 MMOL/L (98-107); CREATININE FOR GFR 0.97 MG/DL (0.70-1.30); GLOMERULAR FILTRATION RATE > 60.0 (>56); GLUCOSE, FASTING 102 MG/DL (60-100); POTASSIUM SERUM 4.2 MMOL/L (3.5-5.1); SODIUM LEVEL 139 MMOL/L (136-145); TOTAL PROTEIN 7.7 G/DL (5.7-8.2)
[2024-08-06 09:12] LABS: FREE T4 1.13 NG/DL (0.89-1.76); THYROID STIMULATING HORMONE 2.362 uIU/ML (0.55-4.78); TOTAL 25(OH) VITAMIN D 23.7 NG/ML (20.0-100.0)
== END ==
LOC: M LAB 08:05
PROVIDERS: ATTEND Nurse Practitioner Family
DX: R53.83 Other fatigue (principal); Z79.899 Other long term (current) drug therapy

== ENCOUNTER → 2025-02-09 | Outpatient (CLI) | payer MEDICARE, OTHER | LOC: M SOG 07:20 | PROVIDERS: ATTEND Orthopaedic Surgery | DX: M25.512 Pain in left shoulder (principal) ==

== ENCOUNTER → 2025-02-24 | Outpatient (CLI) | payer MEDICARE, OTHER | LOC: M SOG 07:24 | PROVIDERS: ATTEND Orthopaedic Surgery | DX: Z47.89 Encounter for other orthopedic aftercare (principal); M25.561 Pain in right knee ==